=== PATIENT | female | born 1980 | race Caucasian/White ===

== ENCOUNTER 2020-11-29 13:41 | Emergency (ER) | payer MEDICAID, SELFPAY ==
[2020-11-29 13:42] VITALS: BP 132/80; PULSE 88; RESP 18; TEMP 37.2; O2SAT 95; BMI 16.9
--- NOTE | 2020-11-29 14:33 | XR_ITS ---
PROCEDURE: XR CHEST 2V CLINICAL HISTORY: hemoptysis COMPARISON: No exams were available for comparison FINDINGS: The cardiomediastinal silhouette and pulmonary vascularity are within normal limits. There is consolidation in the right middle lobe with silhouette sign of the right heart border consistent with right middle lobe pneumonia. In addition there is increased density in the right upper lobe centrally which may also be due to an area of pneumonia. This has a somewhat rounded appearance on the lateral view. Follow-up is suggested to resolution. Left lung is clear. No acute bony abnormalities. IMPRESSION: Right middle and right upper lobe pneumonia. Recommend following till clear as underlying masslike lesion in the right upper lobe is not excluded. Dictated by: Solomon Gomez MD 11/29/2020 15:06 Solomon Gomez MD in [place] 11/29/2020 15:06
[2020-11-29 15:24] LABS: Microscopic, Urine URINE MICROSCOPIC (MICROSCOPIC)
[2020-11-29 15:34] LABS: Coronavirus 19, PCR Not Detected (NotDetected); Influenza A, PCR Not Detected (NotDetected); Influenza B, PCR Not Detected (NotDetected)
[2020-11-29 15:46] LABS: Basophils # 0.1 K/mm3 (0-0.2); Basophils % 0.3 % (0.1-2.0); Eosinophils # 0.1 K/mm3 (0.0-0.4); Eosinophils % 0.4 % (0.1-12.0); Hematocrit 44.1 % (37.0-47.0); Hemoglobin 14.2 g/dL (12.2-16.2); Lymphocytes # 1.1 K/mm3 (0.7-4.5); Mean Corpuscular HGB Conc 32.2 g/dL (31.8-35.4); Mean Corpuscular Hemoglobin 34.2 pg (27.0-31.2); Mean Corpuscular Volume 106.2 fl (81-99); Mean Platelet Volume 8.9 fl (7.4-10.4); Monocytes # 1.5 K/mm3 (0.1-1.0); Monocytes % 6.7 % (1.7-9.3); Neutrophils # 19.2 K/mm3 (1.8-7.8); Neutrophils % 87.5 % (37.0-80.0); Platelet Count 306 K/mm3 (142-424); Red Blood Count 4.16 M/mm3 (4.20-5.40); Red Cell Distribution Width 13.4 % (11.5-17.5); White Blood Count 21.9 K/mm3 (4.8-10.8)
[2020-11-29 15:46] LABS: Appearance,Urine SL CLOUDY (Clear); Bilirubin,Urine Negative (Negative); Blood, Urine 2+ (Negative); Color,Urine YELLOW (Yellow); Glucose,Urine (UA) Negative (Negative); Ketones,Urine Negative (Negative); Leukocyte Esterase,Urine 2+ (Negative); Nitrate,Urine Negative (Negative); Protein,Urine TRACE (Negative); Specific Gravity, Urine <= 1.005 (1.005-1.030)
[2020-11-29 15:48] LABS: MANUAL DIFFERENTIAL MANUAL DIFFERENTIAL (MANUAL DIFF)
--- NOTE | 2020-11-29 15:53 | HMH.EDGENADL ---
ED Disposition Clinical Impression: PNA (pneumonia) Qualifiers: Pneumonia type: due to unspecified organism Laterality: right Lung location: middle lobe of lung Qualified Code(s): J18.9 - Pneumonia, unspecified organism Hematuria Qualifiers: Hematuria type: benign essential microscopic Qualified Code(s): R31.1 - Benign essential microscopic hematuria Disposition: Home, Self-Care Condition on Discharge: Good Additional Instructions: Take antibiotics as directed. Follow-up with your PCP in 2 to 3 days. Repeat chest x-ray in 1 to 2 weeks to ensure full resolution. Prescriptions: Amoxicillin/Potassium Clav [Augmentin 875-125 Tablet] 1 tab PO Q12H #14 tab Transmission Status: P[facility] to [facility] Azithromycin [Z-Pablo 250mg Tab*] 250 mg PO UD DOSE PK #6 tab Transmission Status: Pending to [facility] Referrals: Dl Muller [Primary Care Provider] - 3 days Time of Disposition: 16:24 - Critical Care Critical Care Time: No Attestation: On 11/29/20, the high probability of a clinically significant, sudden or life threatening deterioration of the following system(s) required my full and direct attention, intervention and personal management. The time I documented below is in addition to time spent performing reported procedures but includes the following listed in this critical care notation. Medical Decision Making - Medical Records Medical records reviewed: Yes: I reviewed the patient's medical records. - Oliverio Inquiry Pt receiving controlled substance: No Vital Signs: 11/29/20 13:42 Temperature 98.9 F Temperature Source Oral Pulse Rate [Left Radial] 88 Respiratory Rate 18 Blood Pressure [Right Arm] 132/80 Blood Pressure Mean [Right Arm] 97 Blood Pressure Source [Right Arm] Automatic Cuff Blood Pressure Position [Right Arm] Sitting 02 Sat by Pulse Oximetry 95 Oxygen Delivery Method Room Air - Lab Data Lab results reviewed: Yes: I reviewed the patient's lab results. Lab Results 11/29/20 14:30: Urine Color Yellow, Urine Appearance Sl cloudy, Urine pH 6.0, Ur Specific Grayson <= 1.005, Urine Protein Trace, Urine Glucose (UA) Negative, Urine Ketones Negative, Urine Blood 2+, Urine Nitrate Negative, Urine Bilirubin Negative, Urine Urobilinogen 1.0, Ur Leukocyte Esterase 2+ A, Urine RBC 5-10, Urine WBC 3-5, Ur Squamous Epith Cells Occasional, Urine Bacteria Trace 11/29/20 15:25: WBC 21.9 H*, RBC 4.16 L, Hgb 14.2, Hct 44.1, MCV 106.2 H, MCH 34.2 H, MCHC 32.2, RDW 13.4, Plt Count 306, MPV 8.9, Neut % (Auto) 87.5 H, Lymph % (Auto) 5.0 L, [place] % (Auto) 6.7, Eos % (Auto) 0.4, Baso % (Auto) 0.3, Neut # (Auto) 19.2 H, Lymph # (Auto) 1.1, [place] # (Auto) 1.5 H, Eos # (Auto) 0.1, Baso # (Auto) 0.1 11/29/20 15:25: SARS-CoV-2 (PCR) Not detected, Influenza A Untype (PCR) Not detected, Influenza Type B (PCR) Not detected Result diagrams: 11/29/20 15:25 Orders (Tests/Meds): ORDERS Category Date Time Status Complete Blood Count Auto Diff Stat Lab 11/29/20 15:25 Results Urine Culture Stat Micro 11/29/20 14:30 Received - Radiology Data #1 Image(s): Chest Image Reviewed: Yes I reviewed the patient's radiology results Preliminary Findings: Abnormal Right middle and right upper lobe pneumonia. Recommend following till clear as underlying masslike lesion in the right upper lobe is not excluded. Medical Decision Narrative: 40yo F with past medical history significant for tobacco abuse and drug abuse presents the emergency department secondary to cough and multiple other unrelated complaints. Routine blood work and chest x-ray have been ordered. Patient's CBC reveals a white blood cell count of 21.9. Her chest x-ray reports pneumonia and recommends follow-up study as cannot exclude mass or other reason for hemoptysis underneath the pneumonia. These findings were shared with the patient at bedside. Patient's urinalysis does show 2+ blood but not concerning for infection. Patient be start
[2020-11-29 16:08] LABS: Bacteria,Urine Trace /lpf; Squamous Epithelial Cell,Urine Occasional #/hpf (0-5)
[2020-11-29 16:30] LABS: Anisocytosis 1+; Hypochromasia 1+; Lymphocytes % 6 % (10-50); Monocytes % 8 % (2-9); Neutrophils % 86 % (42-76); Platelet Estimate Normal; Total Cells Counted 100
[2020-11-29 16:35] VITALS: BP 100/65; PULSE 84; RESP 20; TEMP 36.8; O2SAT 98
== END 2020-11-29 16:44 | disposition home or self-care (01) ==
PROVIDERS: Emergency Provider Family Medicine; PCP Nurse Practitioner
DX: J18.9 Pneumonia, unspecified organism (principal); R31.1 Benign essential microscopic hematuria; F17.210 Nicotine dependence, cigarettes, uncomplicated
CPT/HCPCS: 71046; 81001; 85007; 85025; 87086; 87088; 99283; C9803; U0003; U0005

== ENCOUNTER → 2021-04-18 14:15 | Outpatient (CLI) | payer MEDICAID, SELFPAY | PROVIDERS: Visit Provider Obstetrics & Gynecology | DX: Z34.90 Encounter for supervision of normal pregnancy, unspecified, unspecified trimester (principal) | CPT/HCPCS: 36415; 84702 ==

== ENCOUNTER → 2021-04-25 09:51 | Outpatient (CLI) | payer MEDICAID, SELFPAY ==
--- NOTE | 2021-04-25 09:52 | US_ITS ---
FINAL REPORT CLINICAL HISTORY: dates; AMA FINDINGS: There is a single live intrauterine gestation. Presentation is variable. The cervix is closed and measures 3.9 cm. Placenta is posterior. movement is noted. Heart rate is 154 bpm. AMNIOTIC FLUID: Appropriate amount. MEASUREMENTS: ULTRASOUND AGE: 13 weeks 0 days. GESTATION AGE: 14 weeks 0 days. ESTIMATED WEIGHT: 60 g CRL: 6.4 cm corresponding with 12 weeks 6 days. BPD: 2.1 cm corresponding with 13 weeks 3 days. OFD: 2.8 cm . HC: 7.7 cm corresponding with 13 weeks 2 days. AC: 5.9 cm corresponding with 12 weeks 6 days. FL: 0.7 cm corresponding with 12 weeks 2 days. IMPRESSION: Single living IUP with an ultrasound age of 13 weeks 0 days. No anomalies noted. Reviewed, Interpreted and Dictated by Álvaro Lyle III, MD Transcribed by Emilia Ronquillo Authenticated by Álvaro Lyle III, MD on 04/25/2021 02:25:07 PM [facility]
== END ==
PROVIDERS: PCP Obstetrics & Gynecology; Visit Provider Obstetrics & Gynecology
DX: Z34.90 Encounter for supervision of normal pregnancy, unspecified, unspecified trimester (principal)
CPT/HCPCS: 76801

== ENCOUNTER → 2021-05-01 12:52 | Outpatient (CLI) | payer MEDICAID, SELFPAY ==
[2021-05-01 14:15] LABS: Basophils # 0.1 K/mm3 (0-0.2); Eosinophils # 0.1 K/mm3 (0.0-0.4); Eosinophils % 1.2 % (0.1-12.0); Hematocrit 44.1 % (37.0-47.0); Hemoglobin 13.9 g/dL (12.2-16.2); Lymphocytes % 25.1 % (10-50); Mean Corpuscular HGB Conc 31.6 g/dL (31.8-35.4); Mean Corpuscular Hemoglobin 33.6 pg (27.0-31.2); Mean Corpuscular Volume 106.3 fl (81-99); Mean Platelet Volume 8.6 fl (7.4-10.4); Monocytes # 0.7 K/mm3 (0.1-1.0); Monocytes % 5.8 % (1.7-9.3); Platelet Count 303 K/mm3 (142-424); Red Blood Count 4.15 M/mm3 (4.20-5.40); Red Cell Distribution Width 13.2 % (11.5-17.5); White Blood Count 11.9 K/mm3 (4.8-10.8)
[2021-05-03 08:18] LABS: HIV Screen 4th Generation wRfx Non Reactive (Non Reactive)
[2021-05-03 12:13] LABS: Hepatitis B Surface Antigen Negative (Negative); Hepatitis C Antibody <0.1 s/co ratio (0.0-0.9)
[2021-05-03 13:13] LABS: Rapid Plasma Reagin Ab Titer Non Reactive (NonRea<1:1)
[2021-05-04 06:23] LABS: Rubella Antibodies, IgG 3.89 index (Immune >0.99)
[2021-05-04 18:25] LABS: HSV 2 IgG Supplemental Testing Positive (Negative); HSV 2 IgG, Type Spec 2.15 index (0.00-0.90)
== END ==
PROVIDERS: PCP Family Medicine; Visit Provider Obstetrics & Gynecology
DX: Z34.90 Encounter for supervision of normal pregnancy, unspecified, unspecified trimester (principal)
CPT/HCPCS: 36415; 85025; 86592; 86695; 86703; 86762; 86790; 86850; 87340; 87380; G0432

== ENCOUNTER → 2021-06-12 12:36 | Outpatient (CLI) | payer MEDICAID, SELFPAY ==
--- NOTE | 2021-06-12 12:37 | US_ITS ---
FINAL REPORT CLINICAL HISTORY: OB Complete FINDINGS: There is a single live intrauterine gestation. Presentation is cephalic. The cervix is closed and measures 3.5 cm. Placenta is anterior. movement is noted. Heart rate is measured at 150 beats per minute. Three-vessel cord with satisfactory umbilical cord insertion. Four-chamber heart is noted. brain and ventricles are unremarkable. The thoracic cavity is visually smaller than usual of uncertain significance. ABDOMEN: Both kidneys are unremarkable. Stomach is unremarkable. SPINE: No anomalies identified. Both arms and legs noted. AMNIOTIC FLUID: Appropriate amount. MEASUREMENTS: ULTRASOUND AGE: 19 weeks 4 days. GESTATION AGE: 19 weeks 6 days. ESTIMATED WEIGHT: 307 g GROWTH PERCENTILE: 36 % BPD: 4.5 cm corresponding with 19 weeks 4 days. OFD: 5.6 cm corresponding with 19 weeks 4 days. HC: 15.9 cm corresponding with 18 weeks 6 days. AC: 14.2 cm corresponding with 19 weeks 5 days. FL: 3.2 cm corresponding with 20 weeks 1 day. CEREBELLUM: 1.8 cm corresponding with 19 weeks 1 day. HUMERUS: 3.1 cm corresponding with 20 weeks 1 day. NUCH FOLD: 1.7 mm HC/AC: 1.12 CI: 79% FL/BPD: 72% FL/AC: 23% IMPRESSION: Single living IUP with an ultrasound age of 19 weeks 4 days. The thoracic cavity is visually smaller than usual of uncertain significance. Recommend follow-up high risk ultrasound. Reviewed, Interpreted and Dictated by Álvaro Lyle III, MD Transcribed by Emilia Ronquillo Authenticated by Álvaro Lyle III, MD on 06/12/2021 03:15:42 PM [facility]
== END ==
PROVIDERS: PCP Family Medicine; Visit Provider Obstetrics & Gynecology
DX: Z34.90 Encounter for supervision of normal pregnancy, unspecified, unspecified trimester (principal)
CPT/HCPCS: 76805

== ENCOUNTER → 2021-06-20 18:34 | Outpatient (CLI) | payer MEDICAID, SELFPAY | PROVIDERS: Visit Provider Obstetrics & Gynecology | DX: N39.0 Urinary tract infection, site not specified (principal) | CPT/HCPCS: 87086 ==

== ENCOUNTER → 2021-08-22 08:25 | Outpatient (CLI) | payer MEDICAID, SELFPAY ==
[2021-08-22 08:44] LABS: Basophils # 0.3 K/mm3 (0-0.2); Basophils % 2.2 % (0.1-2.0); Eosinophils # 0.2 K/mm3 (0.0-0.4); Eosinophils % 1.8 % (0.1-12.0); Hematocrit 44.7 % (37.0-47.0); Hemoglobin 14.9 g/dL (12.2-16.2); Lymphocytes # 2.5 K/mm3 (0.7-4.5); Lymphocytes % 20.2 % (10-50); Mean Corpuscular HGB Conc 33.3 g/dL (31.8-35.4); Mean Corpuscular Hemoglobin 35.3 pg (27.0-31.2); Mean Corpuscular Volume 105.9 fl (81-99); Mean Platelet Volume 8.6 fl (7.4-10.4); Monocytes # 0.7 K/mm3 (0.1-1.0); Monocytes % 5.8 % (1.7-9.3); Neutrophils # 8.5 K/mm3 (1.8-7.8); Platelet Count 265 K/mm3 (142-424); Red Blood Count 4.22 M/mm3 (4.20-5.40); Red Cell Distribution Width 13.9 % (11.5-17.5); White Blood Count 12.2 K/mm3 (4.8-10.8)
[2021-08-22 08:53] LABS: Glucose,Fasting 97 mg/dl (74-100)
[2021-08-22 10:27] LABS: Glucose 1 Hour 107 mg/dL (74-100)
== END ==
PROVIDERS: PCP Family Medicine; Visit Provider Obstetrics & Gynecology
DX: Z34.90 Encounter for supervision of normal pregnancy, unspecified, unspecified trimester (principal)
CPT/HCPCS: 36415; 82951; 85025

== ENCOUNTER → 2021-08-31 08:11 | Outpatient (CLI) | payer MEDICAID, SELFPAY ==
--- NOTE | 2021-08-31 08:14 | US_ITS ---
FINAL REPORT CLINICAL HISTORY: follow up from 20 week scan COMPARISON: June 12, 2021 FINDINGS: There is a single live intrauterine gestation. Presentation is cephalic. Placenta is anterior, high, grade 2. Heart rate is 130 beats per minute. movement is seen. AMNIOTIC FLUID: Appropriate amount. DAPHNIE: 8.05 cm which is borderline low. A four-chamber heart is seen. Chest appears normal MEASUREMENTS: ULTRASOUND AGE: 29 weeks 6 days. GESTATION AGE: 31 weeks 2 days. ESTIMATED WEIGHT: 1451 g GROWTH PERCENTILE: 6% BPD: 7.3 cm corresponding with 29 weeks 3 days. OFD: 9.8 cm corresponding with 30 weeks 0 days. HC: 27.1 cm corresponding with 29 weeks 4 days. AC: 25.2 cm corresponding with 29 weeks 3 days. FL: 5.9 cm corresponding with 30 weeks 4 days. HC/AC: 1.08 CI: 75% FL/BPD: 80% FL/AC: 23% IMPRESSION: Single living IUP with an ultrasound age of 29 weeks 6 days. DAPHNIE of 8.05 cm. 6% growth percentile. Chest appears normal on today's exam. Reviewed, Interpreted and Dictated by Álvaro Lyle III, MD Transcribed by Emilia Ronquillo Authenticated and [facility]
== END ==
PROVIDERS: PCP Family Medicine; Visit Provider Obstetrics & Gynecology
DX: Z34.90 Encounter for supervision of normal pregnancy, unspecified, unspecified trimester (principal)
CPT/HCPCS: 76816

== ENCOUNTER → 2021-09-12 10:17 | Outpatient (CLI) | payer MEDICAID, SELFPAY ==
--- NOTE | 2021-09-12 10:17 | US_ITS ---
FINAL REPORT CLINICAL HISTORY: Small gestation age FINDINGS: There is a single live intrauterine gestation. Presentation is cephalic. The cervix is closed and measures cm. Placenta is anterior grade 2. Cardiac activity is confirmed at 129 bpm. Fetus is active. Amniotic fluid index is normal measuring 13 cm. MEASUREMENTS: ULTRASOUND AGE: 30 weeks 6 days. GESTATION AGE: 33 weeks 0 days. ESTIMATED WEIGHT: 1654 g GROWTH PERCENTILE: 3% BPD: 7.54 cm consistent with 30 weeks 1 day. OFD: 9.83 cm consistent with 30 weeks 2 days. HC: 27.47 cm consistent with 32 weeks 1 day. AC: 26.16 cm consistent with 30 weeks 3 days. FL: 6.22 cm consistent with 32 weeks 2 days. HC/AC: 1.05 CI: 76% FL/BPD: 83% FL/AC: 24% BREATHIN MOVEMENT: 2 TONE: 2 FLUID VOLUME: 2 BPP SCORE: 6 IMPRESSION: Single living IUP with an ultrasound age of 30 weeks 6 days. BPP SCORE: 6/8 Reviewed, Interpreted and Dictated by Álvaro Lyle III, MD Transcribed by Gwen Cole Authenticated and [facility]
== END ==
PROVIDERS: PCP Family Medicine; Visit Provider Obstetrics & Gynecology
DX: O36.5990 Maternal care for other known or suspected poor fetal growth, unspecified trimester, not applicable or unspecified (principal)
CPT/HCPCS: 76811; 76819; 76820

== ENCOUNTER → 2021-09-15 10:30 | Outpatient (CLI) | payer MEDICAID, SELFPAY ==
--- NOTE | 2021-09-15 10:30 | US_ITS ---
FINAL REPORT CLINICAL HISTORY: growth restriction COMPARISON: 09/12/2021 FINDINGS: There is a single live intrauterine gestation. Presentation is cephalic. The cervix is closed and measures 3.0 cm. Placenta is anterior, high grade 2. Cardiac activity is confirmed at 129 bpm. Fetus is active. Amniotic fluid index is 12.7 cm. MEASUREMENTS: ULTRASOUND AGE: 30 weeks 6 days. GESTATION AGE: 30 weeks 0 days. ESTIMATED WEIGHT: 1654 g GROWTH PERCENTILE: 3% BPD: 7.50 cm corresponding to 30 weeks 1 day. OFD: 9.83 cm corresponding to 30 weeks 2 days. HC: 27.47 cm corresponding to 30 weeks 1 day. AC: 26.16 cm corresponding to 30 weeks 3 days. FL: 6.22 cm corresponding to 32 weeks 2 days. HC/AC: 1.05 CI: 76% FL/BPD: 83% FL/AC: 24% IMPRESSION: Single living IUP with an ultrasound age of 30 weeks 6 days. Low growth percentile, stable. Reviewed, Interpreted and Dictated by Álvaro Lyle III, MD Transcribed by Gwen Cole Authenticated and [facility]
== END ==
PROVIDERS: PCP Family Medicine; Visit Provider Obstetrics & Gynecology
DX: O36.5990 Maternal care for other known or suspected poor fetal growth, unspecified trimester, not applicable or unspecified (principal)
CPT/HCPCS: 76811; 76819; 76820

== ENCOUNTER → 2021-09-21 10:41 | Outpatient (CLI) | payer MEDICAID, SELFPAY ==
--- NOTE | 2021-09-21 10:42 | US_ITS ---
FINAL REPORT CLINICAL HISTORY: growth restriction FINDINGS: There is a single live intrauterine gestation. Presentation is cephalic. The cervix is closed and measures 3 cm. Placenta is anterior, grade 2. Cardiac activity is confirmed at 140 bpm. breathing and movement is noted. Three-vessel cord with satisfactory umbilical cord insertion. Four-chamber heart is noted. ABDOMEN: Both kidneys are unremarkable. Stomach is unremarkable. Both arms and legs noted. DAPHNIE: 8 cm MEASUREMENTS: ULTRASOUND AGE: 31 weeks 1 days. GESTATION AGE: 34 weeks 2 days. ESTIMATED WEIGHT: 1734 g GROWTH PERCENTILE: Less than 2% BPD: 7.4 cm corresponding with 29 weeks 5 days. OFD: 10.3 cm corresponding with 32 weeks 2 days. HC: 28.3 cm corresponding with 31 weeks 0 days. AC: 26.5 cm corresponding with 30 weeks 5 days. FL: 6.3 cm corresponding with 32 weeks 6 days. HC/AC: 1.06 CI: 72 % FL/BPD: 86% FL/AC: 24% BREATHIN/2 MOVEMENT: 2/2 TONE: 2/2 FLUID VOLUME: 2/2 BPP SCORE: 8/8 IMPRESSION: Single living IUP with an ultrasound age of 31 weeks 1 days. BPP SCORE: 8/8 DAPHNIE: 8 cm Reviewed, Interpreted and Dictated by Álvaro Lyle III, MD Transcribed by Emilia Ronquillo Authenticated and [facility]
== END ==
PROVIDERS: PCP Family Medicine; Visit Provider Obstetrics & Gynecology
DX: O36.5990 Maternal care for other known or suspected poor fetal growth, unspecified trimester, not applicable or unspecified (principal)
CPT/HCPCS: 76811; 76819; 76820

== ENCOUNTER 2021-10-05 15:14 | Outpatient (CLI) | payer MEDICAID, SELFPAY ==
[2021-10-05 15:22] VITALS: BP 114/74; PULSE 64; RESP 18; TEMP 36.7; O2SAT 100; BMI 21.6
--- NOTE | 2021-10-05 15:23 | US_ITS ---
FINAL REPORT CLINICAL HISTORY: non reactive FHR tracing in the office FINDINGS: There is a single live intrauterine gestation. Presentation is cephalic. Placenta is anterior grade 1. The amniotic fluid index is 9.2, within normal limits. Cardiac activity is confirmed at 121 bpm. Fetus is active. BREATHIN MOVEMENT: 2 TONE: 2 FLUID VOLUME: 2 BPP SCORE: 8 IMPRESSION: Single living IUP with an ultrasound age of 36 weeks 2 days. BPP SCORE: 8/8 Reviewed, Interpreted and Dictated by Álvaro Lyle III, MD Transcribed by Gwen Cole Authenticated and [facility]
== END 2021-10-05 16:25 | disposition home or self-care (01) ==
LOC: OBOUT 15:16 → OB 15:18
PROVIDERS: PCP Family Medicine; Visit Provider Obstetrics & Gynecology
DX: Z34.90 Encounter for supervision of normal pregnancy, unspecified, unspecified trimester (principal); Z3A.36 36 weeks gestation of pregnancy
CPT/HCPCS: 59025; 76819; 86403; G0463

== ENCOUNTER → 2022-02-23 14:43 | Outpatient (CLI) | payer MEDICAID, SELFPAY | PROVIDERS: PCP Family Medicine; Visit Provider Family Medicine | DX: N39.0 Urinary tract infection, site not specified (principal); B96.29 Other Escherichia coli [E. coli] as the cause of diseases classified elsewhere | CPT/HCPCS: 87086; 87088; 87186 ==

== ENCOUNTER 2023-07-12 09:13 | Outpatient (CLI) | payer MEDICAID, SELFPAY ==
--- NOTE | 2023-07-12 09:14 | XR_ITS ---
FINAL REPORT CLINICAL HISTORY: long-term depo provera use FINDINGS: Using L1-4, the bone mineral density of the spine is 0.870 g/cm2, corresponding to T-score of -1.6 which is within the range of osteopenia. Using the left hip, the bone mineral density of the femoral neck is 0.675 g/cm2, corresponding to a T-score of -1.6 which is within the range of osteopenia. Using the right hip: The bone mineral density of the femoral neck is 0.733 g/cm2, corresponding to a T-score of -1.0 which is within the range of osteopenia. IMPRESSION: Osteopenic bone mineral density of the lumbar spine and hips. NOTE: T-score: Standard deviation compared with peak bone mass of young adult mean. *Following the recommendations of the International Society of Bone densitometry, classification of hip BMD is based on the lower of two T-scores; total hip or femoral neck. Reviewed, Interpreted and Dictated by Mo Salinas MD Transcribed by Estephanie Perez Authenticated and [facility]
--- NOTE | 2023-07-12 09:14 | MM_ITS ---
PROCEDURE INFORMATION: Exam: Bilateral Screening 3D Mammography Exam date and time: 07/12/2023 9:43 AM Age: 42 years old Clinical indication: Screening examination TECHNIQUE: Imaging protocol: Bilateral Screening tomosynthesis and 2D mammography including computer-aided detection (CAD) when performed. COMPARISON: No relevant prior studies available. FINDINGS: MAMMOGRAPHY: Breast composition: The breasts are extremely dense, which lowers the sensitivity of mammography. Mass: None. Architectural distortion: None. Calcifications: No suspicious calcifications. Asymmetric density: None. Skin thickening: None. Axillary adenopathy: None. IMPRESSION: No mammographic evidence of malignancy. Annual screening is recommended unless otherwise clinically indicated. ASSESSMENT: BI-RADS Category 1: Negative
== END 2023-07-12 23:59 | disposition home or self-care (01) ==
LOC: RAD 09:14
PROVIDERS: PCP Obstetrics & Gynecology; Visit Provider Obstetrics & Gynecology
DX: Z79.3 Long term (current) use of hormonal contraceptives (principal); Z12.31 Encounter for screening mammogram for malignant neoplasm of breast
CPT/HCPCS: 77063; 77067; 77080

== ENCOUNTER 2024-08-13 11:01 | Outpatient (CLI) | payer MEDICAID, SELFPAY ==
--- NOTE | 2024-08-13 11:04 | XR_ITS ---
FINAL REPORT CLINICAL HISTORY: Lower back pain, chronic FINDINGS: LUMBAR SPINE Three views were obtained. There is no acute fracture. The disc spaces are well-preserved. There is no malalignment. IMPRESSION: No acute process. Reviewed, Interpreted and Dictated by Mo Salinsa MD Transcribed by Gwen Cole Authenticated and [facility]
--- NOTE | 2024-08-13 11:04 | XR_ITS ---
FINAL REPORT CLINICAL HISTORY: bilateral hip pain FINDINGS: LEFT HIP Three views were obtained. There is no fracture or dislocation. The joint spaces appear normal. No soft tissue abnormality is identified. IMPRESSION: No acute process. Reviewed, Interpreted and Dictated by Mo Salinas MD Transcribed by Gwen Cole Authenticated and [facility]
--- NOTE | 2024-08-13 11:04 | XR_ITS ---
FINAL REPORT CLINICAL HISTORY: cervicalgia FINDINGS: CERVICAL SPINE Three views were obtained. There is no acute fracture. There is moderate disc space narrowing at C5-6 with small posterior osteophytes. There is no malalignment. IMPRESSION: Degenerative changes at C5-6. Reviewed, Interpreted and Dictated by Mo Salinas MD Transcribed by Gwen Cole Authenticated and [facility]
--- NOTE | 2024-08-13 11:04 | XR_ITS ---
FINAL REPORT CLINICAL HISTORY: Bilateral hip pain FINDINGS: RIGHT HIP Three views were obtained. There is no fracture or dislocation. The joint spaces appear normal. No soft tissue abnormality is identified. IMPRESSION: No acute process. Reviewed, Interpreted and Dictated by Mo Salinas MD Transcribed by Gwen Cole Authenticated and [facility]
== END 2024-08-13 23:59 | disposition home or self-care (01) ==
LOC: RAD 11:02
PROVIDERS: PCP Nurse Practitioner Family; Visit Provider Nurse Practitioner Family
DX: M47.812 Spondylosis without myelopathy or radiculopathy, cervical region (principal); M25.552 Pain in left hip; M25.551 Pain in right hip; M54.50 Low back pain, unspecified; G89.29 Other chronic pain
CPT/HCPCS: 72040; 72100; 73502

== ENCOUNTER 2024-09-23 14:43 | Outpatient (RCR) | payer MEDICAID, SELFPAY ==
--- NOTE | 2024-09-24 07:44 | HMH.PTOPEV ---
PT Outpatient Evaluation Rehab PT Outpatient Evaluation Start: 09/23/24 14:59 Freq: Status: Active Protocol: Document 09/23/24 14:59 TANYA (Rec: 09/23/24 15:59 TANYA [id number]) E-signed By Shelly Johnston, PT Outpatient Therapy Subjective History Subjective History This is an initial PT evaluation for 44 y/o female, Junie Patricio, who presents with PT referral for Cervicalgia, pain in right hip, pain in left hip, low back pain . Pt reports out off these complaints her L hip pain bothers her the most. Pt reports her pain has been present for years but this past year is when she noticed a worsening of the pain. Pt describes the pain as a shooting/numbness pain from the hip/groin to the toes. Pt does has some grinding sensations in the hip. Pt attributes her pain to picking up and chasing around her toddler more often as she grows. Pt reports her left leg is also longer than her right. Denies saddle anesthesia or BLE weakness. Pt does have hx of fall in 2016 falling down stairs and reports this is when she first noticed pelvic pain. Pt's pain is worse in the winter. Chief complaint: LBP, L hip pain, Numbness from hip to toes since last year. PMH: Osteoporosis, Degenerative disc disease, Endometriosis, Sciatica, Curvature of the spine X-rays: LS and Hip: clear from acute abnormality. New diagnosis of No cancer in past 12 months? Chief Complaint Pain,Paresthesia Symptom Type Sharp,Shooting Symptoms Relieved By Rest/Positioning Symptoms Aggravated Physical Activity By Prior Functional None Limitations Current Functional Lifting,Squatting,Recreation Activity,Walking Limitations Symptom Description Constant but Variable Level of pain today 7 (0-10) Pain scale - at its 5 best (0-10) Pain scale - at its 8 worst (0-10) Lumbopelvic Eval Posture Thoracic Spine Neutral Posture Standing Position Lumbar Spine Posture Neutral Standing Position Assistive device Assistive Devices None / NA Gait Observation General Gait Pattern No Deviations/Normal Observation Palapation tenderness left lumbar spinal Yes: 1/4 TTP tenderness paraspinal Yes: 1/4 TTP tenderness buttock tenderness Yes: 1/4 TTP Range of Motion Lumbar Spine Active WNL Flexion Range of Motion (degrees) Lumbar Spine Active WNL Extension Range of Motion (degrees) Left Lumbar Spine WNL Lateral Flexion Active Range of Motion (degrees) Right Lumbar Spine WNL Lateral Flexion Active Range of Motion (degrees) Manual Muscle Test Left Knee Extension 4- Good- Strength Grade Knee Flexion 4- Good- Strength Grade Hip Flexion Strength 3+ Fair+ Grade Hip Abduction 3+ Fair+ Strength Grade Hip Adduction 4- Good- Strength Grade Special Tests Hip Dl (BRINDA) Negative Left Test Hip Piriformis Test Positive Left Sciatic Nerve Positive Left Tension Test Unilateral Straight Negative Left Leg Raise (Lasegue) Test Bilateral Straight Positive Leg Raise Test Crossed Straight Leg Negative Left Raise Test Sacroiliac Joint Positive Left Compression Test Hip/Knee Eval ROM left Hip Flexion w/Knee WNL Flexed Active Range of Motion (degrees) Hip Abduction Active WNL Range of Motion ( degrees) Hip Extension Active WNL Range of Motion ( degrees) Special Tests Hip Scouring ( Positive Left Quadrant) Test Lower Extremity Functional Index Activities Today, do you or would you have any difficulty at all with: a.Any of your usual A little bit of difficulty work, housework or school activities b. Your usual No difficulty hobbies, recreational or sporting activities c. Getting into or A little bit of difficulty out of the bath d. Walking between A little bit of difficulty rooms e. Putting on your No difficulty shoes or socks f. Squatting A little bit of difficulty g. Lifting an object A little bit of difficulty , like a bag of groceries from the floor h. Performing light A little bit of difficulty activities around your home i. Performing heavy Moderate difficulty activities around your home j. Getting into or A little bit of difficulty out of a car k. Walking 2 blocks A little bit of difficulty l. Walking a mile A little bit of difficulty m. Going up or down A little bit of difficulty 10 stairs (about 1 flight of stairs) n. Standing for 1 A little bit of difficulty hour o. Sitting for 1 No difficulty hour p. Running on even A little bit of difficulty ground q. Running on uneven Moderate difficulty ground r. Making sharp A little bit of difficulty turns while running fast s. Hopping A little bit of difficulty t. Rolling over in A little bit of difficulty bed LEFI Score Lower Extremity 61 Functional Index Score Outpatient Therapy Assessment Prognosis Rehab Potential Good Short Term Goals Number of Weeks 4 Increase Strength Yes: Improve LLE MMT by 1/5 grade Improve LEFI Score Yes: Improve by 3 points. Decrease Subjective Yes: 48 hour pain average of 4/10 C/O Pain Patient to be Ind w/ Yes HEP Carton Catcher Goals Number of Weeks 8 Decreased Palpation Yes: 0/4 TTP affected structures. Tenderness Increase Strength Yes: Improve LLE MMT to 5/5 to maximize functional strength. Increase Ability to Yes: 30 min without increase in pain Walk Improve LEFI Score Yes: Improve to score of 70/80 Decrease Subjective Yes: 48 hour pain average of 2/10 C/O Pain Patient to be Ind w/ Yes HEP Outpatient Therapy Plan of Care Treatment Plan May Include Therapeutic Exercise Yes Including Home Exercise Program Manual Therapy Yes: Precaution: Osteoporosis Techniques Therapeutic Yes Activities to Return to Previous Functional/Work Level ADL/Self Care Yes Education Dry Needling Yes Thermal Modalities Yes Electrical Yes Stimulation Ultrasound/ Yes Phonophoresis Iontophoresis Yes Parrafin Yes Orthotics/Bracing/ Yes Splinting Massage Yes Eval/Re-Eval Yes Frequency Times per week 2x Duration Number of Weeks 6-8 weeks Addendums This patient is a No candidate for social or vocational rehab ? Patient/Guardian Yes verbally acknowledges understanding of treatment program and consents to further treatment? Patient/Guardian Yes verbally acknowledges understanding of diagnosis, prognosis and goals for treatment? Eval Complexity PT Charges 45407 - Moderate Complexity Shoulder/Elbow Eval Shoulder Objective Measurements Elbow Objective Measurements PHYSICIAN CERTIFICATION: I certify the specified therapy services for Nida Patricio are required, authorized, and reviewed every 30 days.
== END 2024-09-23 23:59 | disposition home or self-care (01) ==
LOC: PT 14:43
PROVIDERS: PCP Nurse Practitioner Family; Visit Provider Nurse Practitioner Family
DX: M54.2 Cervicalgia (principal); M25.552 Pain in left hip; M25.551 Pain in right hip; M54.50 Low back pain, unspecified
CPT/HCPCS: 97162

== ENCOUNTER 2025-03-17 15:32 | Outpatient (CLI) | payer MEDICAID, SELFPAY ==
--- OUTSIDE RECORDS SUMMARY | 2025-03-02 09:55 | XMS_ITS | Encounter Summary ---
Author Organization Healthcare Address [address] [place] [address] Care Team Providers Care Room Service Bellhop Name Role Phone Mirella Hirsch DMD Unavailable [phone] Kylee Pearce Unavailable Unavailable Pema Phoenix APRN Primary Care Provider [phone] Reason for Referral * Imaging (Routine) - Closed Specialty Diagnoses / Procedures Referred By Alana peralta Referred To Contact Radiology Diagnoses Deviated nasal septum Rhinorrhea Procedures CT Sinuses wo IV Contrast Edward Vera MD [address] [address] Phone: tel: fax: Referral ID Status Reason Start Date Expiration Date Visits Re quested Visits Authorized [id number] Closed 11/09/2024 05/11/2026 1 1 Reason for Visit * Imaging (Routine) - Closed Specialty Diagnoses / Procedures Referred By Alana peralta Referred To Contact Radiology Diagnoses Deviated nasal septum Rhinorrhea Procedures CT Sinuses wo IV Contrast Edward Vera MD [address] [address] Phone: tel: fax: Referral ID Status Reason Start Date Expiration Date Visits Re quested Visits Authorized [id number] Closed 11/09/2024 05/11/2026 1 1 Encounter Details Date Type Department Care Team (Latest Contact Info) Description 03/02/2025 9:55 AM EST - 03/02/2025 11:59 PM EST Hospital Encounter [facility] [address] [place] [address] Deviated nasal septum; Rhinorrhea Discharge Disposition: Home or Self Care Social History Tobacco Use Types Packs/Day Years Used Date Smoking Tobacco: Every Day Smokeless Tobacco: Never Alcohol Use Standard Drinks/Week Comments No 0 (1 standard drink = 0.6 oz pur e alcohol) Comments Unknown Sex and Gender Information Value Date Recorded Sex Assigned at Not on file Legal Sex Female 6:15 PM EDT Gender Identity Not on file Sexual Orientation Not on file documented as of this encounter Medications at Time of Discharge buprenorphine-n aloxone (Suboxone) 8-2 MG SL tablet dissolve 2 tablets under the tongue once a day Calcium Carb-Cholecalci ferol 600-10 MG-MCG tablet Take 1 tablet by mouth daily. 12/05/2023 Dextromethorpha n-guaiFENesin (GNP Mucus DM Max Strength) 60-1200 MG tablet sustained-relea se 12 hour TAKE ONE TABLET BY MOUTH EVERY TWELVE HOURS NEEDED FOR cough 07/21/2024 fluticasone (Flonase) 50 MCG/ACT nasal spray Administer 2 sprays into each nostril daily. Shake gently. Before first use, prime pump. After use, clean tip and replace cap. 16 g 11 09/01/2024 09/02/19 26 medroxyPROGESTE Kamlesh (Depo-Provera) 150 MG/ML injection INJECT 1ML INTRAMUSCULARLY ONCE EVERY 3 MONTHS DIRECTED 08/21/2024 documented as of this encounter Plan of Treatment Not on file documented as of this encounter Procedures Procedure Name Priority Date/Time Associated Diagnosis Comments CT SINUSES WO IV CONTRAST Routine 03/02/2025 10:25 AM EST Deviated nasal septum Rhinorrhea documented in this encounter Results * CT Sinuses wo IV Contrast (03/02/2025 10:25 AM EST) Anatomical Region Laterality Modality Head Computed Tomogra phy Impressions 03/02/2025 11:10 AM EST Anatomic etiology of nasal obstruction: Septal Deviation: [id number] nasal septal deviation with a septal spur projecting into the right nasal passage, narrowing the right airway. Turbinate and Swell Body Hypertrophy: Prominent nasal swell bodies (combined transverse dimension 12 mm) and compensatory left inferior turbinate hypertrophy. External/Aperture Findings: Deviation of the columella to the right and asymmetry of the piriform apertures (right smaller than left), correlating with the history of trauma and clinical nasal deformity. No Acute Sinusitis: Very mild chronic mucosal thickening in the maxillary sinuses and a retention cyst in the left sphenoid sinus. No air-fluid levels to suggest acute infection. Anatomic Variant: Hypoplastic right frontal sinus. CRITICAL RESULT: No. COMMUNICATION: Per this written report. Drafted by Dave Garvin MD on 03/02/2025 10:50 AM Final report signed by Dave Garvin MD on 03/02/2025 11:10 AM Narrative 03/02/2025 11:10 AM EST CLINICAL INDICATION: Sinusitis, acute, uncomplicated. TECHNIQUE: Spiral imaging was performed through the paranasal sinuses without contrast administration. Axial images were reconstructed in bone and soft tissue algorithm. Reformatted images in the coronal and sagittal planes were generated from the axial data set. Total DLP (Dose-Length Product): 64.62 mGy.cm. Please note: The reported value represents the total of one or more individual components during the CT acquisition on this date and at this time, and as such, the same value may appear in more than one CT report depending on the interpreting/reporting physicians. COMPARISON: None. FINDINGS: Diagnostic Quality: Adequate. Nasal Cavity: The nasal septum is deviated from left to right and there is a small septal spur projecting towards the right nasal passage. Nasal swell bodies are prominent. The overall transverse dimension of the nasal septum and bilateral nasal swell bodies measures 12 mm on coronal imaging (image 35, series 5). There is hypertrophy of the inferior turbinates, left greater than right. No nasal masses are present. The ethmoid roofs and cribriform plates are intact and reasonably symmetric. There is Keros type I configuration of the olfactory fossae. Maxillary Sinuses: Very mild circumferential mucosal thickening in bilateral maxillary antrum. The ostiomeatal units are patent. Ethmoid Air Cells: The ethmoid air cells are clear. Frontal Sinuses: Right frontal sinus is underpneumatized. Left frontal sinus is clear. There is a left-sided masses. The frontal recesses are patent. Sphenoid Sinuses: Mild circumferential mucosal thickening and retention cyst in the left sphenoid sinus. The sphenoethmoidal recesses are patent. There is postsellar pneumatization of the sphenoid bone. Mastoid Air Cells and Middle Ears: Clear. Bone: No destructive lesions or fractures are present. Intracranial Compartment: No detectable abnormality is present in the imaged portions of the brain. No detectable abnormality is present in the imaged portions of the orbits. Soft Tissues: The columella appears deviated towards the right, and the right piriform aperture appears asymmetrically smaller (image 8, series 3). No soft tissue masses or inflammatory changes are present. Procedure Note Dave Garvin MD - 03/02/2025 CLINICAL INDICATION: Sinusitis, acute, uncomplicated. TECHNIQUE: Spiral imaging was performed through the paranasal sinuses withoutcontrast administration. Axial images were reconstructed in bone and softtissue algorithm. Reformatted images in the coronal and sagittal planeswere generated from the axial data set. Total DLP (Dose-Length Product): 64.62 mGy.cm. Please note: The reportedvalue represents the total of one or more individual components during theCT acquisition on this date and at this time, and as such, the same valuemay appear in more than one CT report depending on theinterpreting/reporting physicians. COMPARISON: None. FINDINGS: Diagnostic Quality: Adequate. Nasal Cavity: The nasal septum is deviated from left to right and there maurice small septal spur projecting towards the right nasal passage. Nasalswell bodies are prominent. The overall transverse dimension of the nasalseptum and bilateral nasal swell bodies measures 12 mm on coronal imaging(image 35, series 5). There is hypertrophy of the inferior turbinates,left greater than right. No nasal masses are present. The ethmoid roofsand cribriform plates are intact and reasonably symmetric. There is Kerostype I configuration of the olfactory fossae. Maxillary Sinuses: Very mild circumferential mucosal thickening inbilateral maxillary antrum. The ostiomeatal units are patent. Ethmoid Air Cells: The ethmoid air cells are clear. Frontal Sinuses: Right frontal sinus is underpneumatized. Left frontalsinus is clear. There is a left-sided masses. The frontal recesses arepatent. Sphenoid Sinuses: Mild circumferential mucosal thickening and retentioncyst in the left sphenoid sinus. The sphenoethmoidal recesses are patent.There is postsellar pneumatization of the sphenoid bone. Mastoid Air Cells and Middle Ears: Clear. Bone: No destructive lesions or fractures are present. Intracranial Compartment: No detectable abnormality is present in theimaged portions of the brain. No detectable abnormality is present in theimaged portions of the orbits. Soft Tissues: The columella appears deviated towards the right, and theright piriform aperture appears asymmetrically smaller (image 8, series3). No soft tissue masses or inflammatory changes are present. IMPRESSION: Anatomic etiology of nasal obstruction: Septal Deviation: Akpv-jr-dguoi nasal septal deviation with a septal spurprojecting into the right nasal passage, narrowing the right airway. Turbinate and Swell Body Hypertrophy: Prominent nasal swell bodies(combined transverse dimension 12 mm) and compensatory left inferiorturbinate hypertrophy. External/Aperture Findings: Deviation of the columella to the right andasymmetry of the piriform apertures (right smaller than left), correlatingwith the history of trauma and clinical nasal deformity. No Acute Sinusitis: Very mild chronic mucosal thickening in the maxillarysinuses and a retention cyst in the left sphenoid sinus. No air-fluidlevels to suggest acute infection. Anatomic Variant: Hypoplastic right frontal sinus. CRITICAL RESULT: No. COMMUNICATION: Per this written report. Drafted by Dave Garvin MD on 03/02/2025 10:50 AM Final report signed by Dave Garvin MD on 03/02/2025 11:10 AM Edward Vera MD IMG CT PROCEDURES Final Result documented in this encounter Visit Diagnoses Diagnosis Deviated nasal septum Rhinorrhea Other diseases of nasal cavity and sinuses documented in this encounter Additional Health Concerns Assessment Noted Time A Body Mass Index follow-up plan has been documented for the patient 11/12/2024 1:33 PM EDT documented as of this encounter Care Teams Room Service Bellhop Relationship Specialty Start Date End Date Pema Phoenix APRN [address] [place] [address] PCP - General 09/01/24 Mirella Hirsch DMD [address] [id number] Dentist Dental Topper Packer 07/10/23 Kylee Pearce Dental Student Dental Topper Packer 07/14/24 documented as of this encounter
[2025-03-17 15:33] LABS: Coronavirus 19, PCR Not Detected (NotDetected); Influenza A, PCR Not Detected (NotDetected); Influenza B, PCR Not Detected (NotDetected); Microscopic, Urine URINE MICROSCOPIC (MICROSCOPIC)
--- OUTSIDE RECORDS SUMMARY | 2025-03-17 15:34 | XMS_ITS | Encounter Summary ---
Author Organization Healthcare Address [address] [place] [id number] Care Team Providers Care Academic Advising Director Name Role Phone Mirella Hirsch DMD Unavailable [phone] Kylee Paerce Unavailable Unavailable Pema Phoenix APRN Primary Care Provider [phone] Encounter Details Date Type Department Care Team (Latest Contact Info) Description 03/02/2025 Travel Social History Tobacco Use Types Packs/Day Years [...] on file documented as of this encounter Functional Status * Communicable Disease Screening Question Answer Date of Assessment Author Have you been in contact wit h someone who was sick? No / Unsure 03/02/2025 9:55 AM Servando Wong Do you have any of the follo wing new or worsening symptoms? Runny nose 03/02/2025 9:55 AM Arnulfo Wong * Travel Screening Question Answer Date of Assessment Author Have you traveled internatio macho or domestically in the last month? No 03/02/2025 9:55 AM Caren Ovalles documented as of this encounter Mental Status * Communicable Disease Screening Question Answer Entry Date Author Have you been in contact wit h someone who was sick? No / Unsure 03/02/2025 9:55 AM Servando Wong Do you have any of the follo wing new or worsening symptoms? Runny nose 03/02/2025 9:55 AM Arnulfo Wong * Travel Screening Question Answer Entry Date Author Have you traveled internatio macho or domestically in the last month? No 03/02/2025 9:55 AM Caren Ovalles documented in this encounter Plan of Treatment Not on file documented as of this encounter Visit Diagnoses Not on filedocumented in this encounter Additional Health Concerns Assessment Noted Time A Body Mass Index follow-up plan has been documented for the patient 11/12/2024 1:33 PM EDT documented as of this encounter Care Teams Academic Advising Director Relationship Specialty Start Date End Date Pema Phoenix APRN [address] [place] [address] PCP - General 09/01/24 Mirella Hirsch, ISHAAN [address] [facility] [address] [place] [address] Dentist Dental Sourcer 07/10/23 Kylee Pearce Dental Student Dental Sourcer 07/14/24 documented as of this encounter
--- OUTSIDE RECORDS SUMMARY | 2025-03-17 15:34 | XMS_ITS | Clinical Summary ---
Author Organization Healthcare Address [address] [place] [address] Care Team Providers Care Lifts And Cranes Inspector Name Role Phone Mirella Hirsch DMD Unavailable [phone] Kylee Pearce Unavailable Unavailable Pema Phoenix APRN Primary Care Provider [phone] Allergies No known active allergies Medications * This document contains information received from the source organization and may not represent a complete record from that organization. buprenorphine- naloxone (Suboxone) 8-2 MG SL tablet dissolve 2 tablets under the tongue once a day Active Calcium Carb-Cholecalc iferol 600-10 MG-MCG tablet Take 1 tablet by mouth daily. 12/05/19 24 Active Dextromethorph an-guaiFENesin (GNP Mucus DM Max Strength) 60-1200 MG tablet sustained-rele ase 12 hour TAKE ONE TABLET BY MOUTH EVERY TWELVE HOURS NEEDED FOR cough 07/22/19 25 Active medroxyPROGEST ERone (Depo-Provera) 150 MG/ML injection INJECT 1ML INTRAMUSCULARLY ONCE EVERY 3 MONTHS DIRECTED 08/22/19 25 Active fluticasone (Flonase) 50 MCG/ACT nasal spray Administer 2 sprays into each nostril daily. Shake gently. Before first use, prime pump. After use, clean tip and replace cap. 16 g 11 09/02/19 25 026 Active Active Problems Problem Noted Date Diagnosed Date Acquired deformity of nose 09/02/2024 Deviated nasal septum 09/02/2024 History of substance abuse 10/09/2021 Smoking (tobacco) complicati ng , unspecified trimester 10/09/2021 Nasal septal deviation 02/28/2016 Hypertrophy of both inferior nasal turbinates Recurrent acute sinusitis 02/28/2016 Encounters Date Type Department Care Team Description 03/02/2025 9:55 AM EST - 03/02/2025 11:59 PM [facility] Hospital Encounter [facility] Radiology [address] [place] [address] Deviated nasal septum; Rhinorrhea Discharge Disposition: Home or Self Care 03/02/2025 Travel from Last 3 Months Social History Tobacco Use Types Packs/Day Years Used Date Smoking Tobacco: Every Day Smokeless Tobacco: Never Tobacco Cessation:Ready to Q uit: Not Asked; Counseling Given: Not Answered Alcohol Use Standard Drinks/Week Comments No 0 (1 standard drink = 0.6 oz pur e alcohol) Comments Unknown Sex and Gender Information Value Date Recorded Sex Assigned at Not on file Legal Sex Female 6:15 PM EDT Gender Identity Not on file Sexual Orientation Not on file Last Filed Vital Signs Vital Sign Reading Time Taken Comments Blood Pressure 124/79 11/09/2024 10:19 AM EDT Pulse 64 11/09/2024 10:19 AM EDT Temperature 37 C (98.6 F) 10/11/2020 2:03 PM EDT Respiratory Rate 24 10/11/2020 2:03 PM EDT Oxygen Saturation - - Inhaled Oxygen Concentration - - Weight 45.4 kg (100 lb 1.4 oz) 11/09/2024 10:19 AM EDT Height 167.6 cm (5' 6 ) 11/09/2024 10:19 AM EDT Body Mass Index 16.15 11/09/2024 10:19 AM EDT Plan of Treatment Health Maintenance Due Date Last Done Comments Dental X-Ray: Bitewings 1979 Dental X-Ray: Full Mouth 1979 [facility]-Depression Screening 1979 [facility]-HIV Screening 1979 [facility]-Hepatitis C Screening 1979 [facility]-Infant/Child/Adol SDOH Screenings 1979 [facility]-Varicella Vaccines (1 of 2 - 13+ 2-dose series) 09/08/1992 [facility]- SDOH Screenings 09/08/1997 [facility]-Adult SDOH Screenings 09/08/1997 [facility]-Hepatitis B Vaccines (1 of 3 - 19+ 3-dose series) 09/08/1998 [facility]-Pneumococcal Vaccine: Pediatrics (0 to 5 Years) and At-Risk Patients (6 to 49 Years) (1 of 2 - PCV) 09/08/1998 [facility]-Pap Smear 09/08/2000 [facility]-DTaP,Tdap,and Td Vaccine s (1 - Tdap) 06/22/2009 06/21/2009 [facility]-Cervical Cancer Screening 09/08/2009 [facility]-HPV/Cotest 09/08/2009 Dental Oral Exam 12/14/2023 06/12/2023 Dental Prophylaxis 06/25/2024 12/25/2023 CT Colonography 09/08/2024 Colonoscopy 09/08/2024 FIT-DNA 09/08/2024 FIT 09/08/2024 FOBT 09/08/2024 Sigmoidoscopy 09/08/2024 [facility]-Colorectal Cancer Screening 09/08/2024 [id number] Vaccine ( - 20 25-26 season) 2024 [facility]-Influenza Vaccine (#1) 2024 [facility]-Zoster Vaccines (1 of 2) 09/08/2029 HPV Vaccines (No Doses Required) Completed [facility]-HIB Vaccines Aged Out No longer e ligible based on patient's age to complete this topic [facility]-Hepatitis A Vaccines Aged Out No longer eligible based on patient's age to complete this topic [facility]-IPV Vaccines Aged Out No longer e ligible based on patient's age to complete this topic [facility]-Rotavirus Vaccines Aged Out No lo nger eligible based on patient's age to complete this topic Procedures Procedure Name Priority Date/Time Associated Diagnosis Comments CT SINUSES WO IV CONTRAST Routine 03/02/2025 10:25 AM EST Deviated nasal septum Rhinorrhea PROPHYLAXIS - ADULT Routine 12/25/2023 9 :00 AM EDT Caries COMPREHENSIVE ORAL EVALUATION - NEW OR ESTABLISHED PATIENT Routine 06/12/2023 9:00 AM EDT Encounter for dental examination Dental caries from Last 3 Months or Most Recently Relevant to Health Maintenance Results * CT Sinuses wo IV Contrast (03/02/2025 10:25 AM EST) Anatomical Region Laterality Modality Head Computed Tomogra phy Impressions 03/02/2025 11:10 AM EST Anatomic etiology of nasal obstruction: Septal Deviation: Kdsf-wa-kkdwf nasal septal deviation with a septal spur [...] Anatomic etiology of nasal obstruction: Septal Deviation: Pwwj-rb-ibmpu nasal septal deviation with a septal spurprojecting [...] Vera MD IMG CT PROCEDURES Final Result from Last 3 Months Insurance MEDICAID [facility] MEDICAID VIGIL Care Teams Lifts And Cranes Inspector Relationship Specialty Start Date End Date Pema Phoenix APRN [address] [place] [address] PCP - General 09/01/24 Mirella Hirsch, ISHAAN [address] [facility] [place] [address] [place] [address] Dentist Dental Deliverer Pharmacy 07/10/23 Kylee Pearce Dental Student Dental Deliverer Pharmacy 07/14/24
--- OUTSIDE RECORDS SUMMARY | 2025-03-17 15:34 | XMS_ITS | Encounter Summary ---
Author Organization Healthcare Address [address] [place] [address] Care Team Providers Care [employer] Scout Name Role Phone Yumi Ruffin APRN Primary Care Provider [phone] Alonso May Unavailable Unavailable Mirella Hirsch DMD Unavailable [phone] Kylee Pearce Unavailable Unavailable Pema Phoenix APRN Primary Care Provider +- [phone] Encounter Details Date Type Department Care Team (Late st Contact Info) Description 01/25/2023 Community [facility] [address] [place] [address] Estrella Moncada APRN [address] Social History Tobacco Use Types Packs/Day Years Used Date Smoking Tobacco: Every Day Alcohol Use Standard Drinks/Week Comments No 0 (1 standard drink = 0.6 oz pur e alcohol) Comments Unknown Sex and Gender Information Value Date Recorded Sex Assigned at Not on file Legal Sex Female 6:15 PM EDT Gender Identity Not on file Sexual Orientation Not on file documented as of this encounter Plan of Treatment Not on file documented as of this encounter Visit Diagnoses Not on filedocumented in this encounter Care Teams [employer] Scout Relationship Specialty Start Date End Date Yumi Ruffin APRN [address] [place] [address] PCP - General 07/29/20 08/31/24 Pema Phoenix APRN [address] [place] [address] PCP - General 09/01/24 Alonso May Dental Student Dental Green Chain Worker 07/10/23 Mirella Hirsch, ISHAAN [address] [phone] Dentist Dental Green Chain Worker 07/10/23 Kylee Pearce Dental Student Dental Green Chain Worker 07/14/24 documented as of this encounter
--- OUTSIDE RECORDS SUMMARY | 2025-03-17 15:35 | XMS_ITS | Encounter Summary ---
Author Organization [facility] Address [address] [place] [address] Care Team Providers Care Electrician Machine Shop Name Role Phone RuelortegaYumi dias APRN Primary Care Provider + [phone] Alonso May Unavailable Unavailable Mirella Hirsch DMD Unavailable [phone] Kylee Pearce Unavailable Unavailable Pema Phoenix APRN Primary Care Provider +- [phone] Encounter Details Date Type Department Care Team (Late st Contact Info) Description 10/09/2021 Lab Requisition [facility] [address] [place] [address] Renard Montesinos [address] [place] [address] Encounter for general adult medical examination without abnormal findings Social History Tobacco Use Types Packs/Day Years [...] Procedure Name Priority Date/Time Associated Diagnosis Comments BUPRENORPHINE LCMSMS URINE Routine 10/09/2021 2:13 PM EDT Encounter for general adult medical examination without abnormal findings documented in this encounter Results * (ABNORMAL) Buprenorphine Confirm Urine (10/09/2021 2:13 PM EDT) Buprenorphine <10 <10 ng/mL 10/11/2021 4:28 AM EDT [facility] Buprenorphine Glucuronide 82(H) <50 ng/mL 10/11/2021 4:28 AM EDT [facility] Comment:Metabolite of Bupren orphine Norbuprenorphine 84(H) <10 ng/mL 10/12/19 4:28 AM EDT [facility] Norbuprenorphine Glucuronide 604(H) <50 ng/mL 10/11/2021 4:28 AM EDT [facility] Comment:Metabolite of Norbup renorphine Urine Urine specimen obtained by clean catch procedure / Unknown 10/09/2021 2:13 PM EDT 10/09/2021 5:21 PM EDT Narrative [facility] - 10/11/2021 4:28 AM EDT Drug analysis is confirmed by LC-MS/MS (LC Tandem Mass Spectrometry) on Urine specimens. This test was developed and its performance characteristics determined by [facility]. It has not been cleared or approved by the FDA. The laboratory is regulated under CLIA as qualified to perform high-complexity testing. This test is used for clinical purposes. Testing is performed at the [facility], Special Chemistry Laboratory. [facility] LAB URINE ORDERABLES Final Resul t [facility] [address] [place] [address] documented in this encounter Visit Diagnoses Diagnosis Encounter for general adult medical examination without abnormal findings documented in this encounter Care Teams Electrician Machine Shop Relationship Specialty Start Date End Date Yumi Ruffin APRN [address] [place] [address] PCP - General 07/29/20 08/31/24 Pema Phoenix APRN [address] [place] [address] PCP - General 09/01/24 Alonso May Dental Student Dental Ep Technologist 07/10/23 Mirella Hirsch DMD [address] [place] [address] [address] [place] [address] Dentist Dental Ep Technologist 07/10/23 Kylee Pearce Dental Student Dental Ep Technologist 07/14/24 documented as of this encounter
[2025-03-17 16:08] LABS: Bilirubin,Urine Negative (Negative); Color,Urine YELLOW (Yellow); Glucose,Urine (UA) Negative (Negative); Ketones,Urine Negative (Negative); Leukocyte Esterase,Urine Negative (Negative); PH,Urine 6.0 (5.0-8.5); Protein,Urine Negative (Negative); Specific Gravity, Urine 1.025 (1.005-1.030); Urobilinogen,Urine 0.2 EU/dl (0.2)
[2025-03-17 18:23] LABS: Bacteria,Urine 2+ /lpf; Mucus,Urine 2+ /lpf; RBC,Urine 20-50 #/hpf (0-3); Squamous Epithelial Cell,Urine 50-100 #/hpf (0-5); WBC,Urine Occasional #/hpf (0-3)
== END 2025-03-17 23:59 | disposition home or self-care (01) ==
LOC: LAB.DROPOF 15:33
PROVIDERS: PCP Nurse Practitioner Family; Visit Provider Nurse Practitioner Family
DX: R30.0 Dysuria (principal); R68.89 Other general symptoms and signs
CPT/HCPCS: 81001; 87086; 87631